=== PATIENT | male | born 1950 | race Caucasian/White ===

== ENCOUNTER → 2017-03-21 | Outpatient (CLI) | payer OTHER, MEDICARE ==
[~2017-03-21] MED LIST: GADOBUTROL 10 ML VIAL IVP ONE
== END ==
LOC: FIMAGING 14:24
PROVIDERS: ATTEND Specialist
DX: N40.0 Benign prostatic hyperplasia without lower urinary tract symptoms (principal); N50.89 Other specified disorders of the male genital organs
CPT/HCPCS: 72197; 76377; A9585

== ENCOUNTER → 2018-06-25 | Outpatient (CLI) | payer OTHER, MEDICARE | LOC: FIMAGING 11:02 | DX: M48.061 Spinal stenosis, lumbar region without neurogenic claudication (principal) ==

== ENCOUNTER → 2018-09-15 | Outpatient (CLI) | payer OTHER, MEDICARE | LOC: FIMAGING 18:28 | DX: M47.892 Other spondylosis, cervical region (principal); M48.02 Spinal stenosis, cervical region; M50.21 Other cervical disc displacement, high cervical region; M46.92 Unspecified inflammatory spondylopathy, cervical region ==

== ENCOUNTER → 2019-01-04 | Outpatient (CLI) | payer OTHER, MEDICARE | LOC: FIMAGING 17:52 | PROVIDERS: ATTEND Neurological Surgery | DX: M51.34 Other intervertebral disc degeneration, thoracic region (principal); G20 Parkinson's disease; G89.29 Other chronic pain ==